=== PATIENT | male | born 1940 | race Two or more races ===

== ENCOUNTER 2023-01-14 09:00 | Outpatient (RCR) | payer MEDICARE, OTHER, SELFPAY | END 2023-01-14 09:05 | disposition home or self-care (01) | LOC: PT 09:00 | PROVIDERS: Visit Provider Family Medicine | DX: M79.661 Pain in right lower leg (principal); R60.0 Localized edema; S81.801A Unspecified open wound, right lower leg, initial encounter | CPT/HCPCS: 29580; 97140; 97162; 97164; 97597; 97598; 97605 ==